=== PATIENT | female | born 1960 | race Caucasian/White ===

== ENCOUNTER → 2019-09-20 | Outpatient (CLI) | payer OTHER ==
[~2019-09-20] MED LIST: CIPROFLOXACIN500 M1 PO; PERCOCET 5-3251 EACH PO; PRILOSEC40 MG; TAMSULOSIN HCL0.4 MG PO
== END ==
LOC: M.RAD 14:01
DX: Z12.31 Encounter for screening mammogram for malignant neoplasm of breast (principal)

== ENCOUNTER → 2019-09-20 | Outpatient (CLI) | payer OTHER | LOC: M.CT 13:50 | DX: Z13.6 Encounter for screening for cardiovascular disorders (principal) ==